=== PATIENT | female | born 1970 | race Caucasian/White ===

== ENCOUNTER 2017-06-17 20:56 | Emergency (ER) | payer OTHER ==
[2017-06-17 21:19] VITALS: PULSE 74; RESP 14; TEMP 98.2
[2017-06-17] MEDS ORDERED: diphenhydrAMINE 25 MG CAP PO ONE ×2 (22:17→22:29)
[2017-06-17] MEDS ORDERED: OXYCODONE/APAP 5/325 TAB PO ONE (22:17)
[2017-06-17] MEDS ORDERED: OXYCODONE/APAP 5/325MG PREPACK#4 BTL TAKEHOME ONE ×2 (22:20→22:23)
--- NOTE | 2017-06-17 22:22 | EDPHY ---
H & P Time Seen by Provider: 06/17/17 22:03 HPI/ROS: This patient complains of left ear pain that feels like inner ear pain to her. She is currently on amoxicillin for otitis media. She was also started on Cortisporin/hydrocortisone drops to the left ear for apparent evidence of otitis externa in addition to head is media by her mid-level this past week. She has taken for 5 days of the Amoxil. She also recently took clindamycin in [employer] for a skin infection that has resolved and she just completed this medication shortly prior to starting the Amoxil. She states the pain is currently moderate but at times is severe and radiates down toward the mandible. She took 800 mg of ibuprofen prior to arrival with mild improvement but seeks more analgesia. If she does not think she can sleep with her current level of pain. ROS: No high fevers or chills. No other constitutional symptoms HEENT: No right ear symptoms. She had nasal congestion prior to the onset of the ear pain. No sore throat. Pulmonary: Mild dry cough past 2 days. No pleuritic pain. No dyspnea. No hemoptysis. Cardiovascular: No complaints GI: No complaints Integumentary: No skin rash Neuro: No confusion. No headache. No numbness. 7 point ROS is otherwise negative. Smoking Status: Never smoked Physical Exam: Physical Exam Vital signs are normal. General: No acute distress HEENT: Nose: Clear discharge bilaterally. No sinus tenderness to percussion. Ears: Left external canal is clear left TM is clear with a serous effusion that is slightly cloudy.. Right ear exam is normal-clear external canal, clear TM. No effusion. Oropharynx: No erythema or exudates. No dysphonia. No drooling or stridor. Eyes: Pupils equal and react to light. Extraocular motions are intact. Neck: Supple with no meningismus. No lymphadenopathy Lungs: Clear to auscultation bilaterally with no rales, rhonchi or wheeze. No respiratory distress. Cardiac: Regular rate and rhythm with no murmur gallop or rub Skin: No rash or pallor. Neuro: Alert with no focal deficits noted. Initial differential diagnosis: Resolving otitis media, serous otitis, URI Constitutional: Initial Vital Signs Temperature (C) 36.8 C 06/17/17 21:12 Heart Rate 74 06/17/17 21:12 Respiratory Rate 14 06/17/17 21:12 O2 Delivery Mode Room Air Allergies/Adverse Reactions: amoxicillin trihydrate [From Augmentin] Allergy (Severe, Verified 05/30/16 14:39 ) hydromorphone HCl [From Dilaudid] Allergy (Intermediate, Verified 05/30/16 14:39 ) morphine [Morphine] Allergy (Intermediate, Verified 05/30/16 14:39) ciprofloxacin [From Cipro] Allergy (Verified 05/30/16 14:39) fentanyl Allergy (Verified 05/30/16 14:39) hydrocodone [Hydrocodone] Allergy (Verified 05/30/16 14:39) oxycodone HCl [From Percocet] Allergy (Verified 05/30/16 14:39) Home Medications: Medication Instructions Recorded Synthroid 07/27/14 Clindamycin 300 mg PO Q8 #60 cap 05/30/16 AMOXICILLIN 06/17/17 Albuterol Hfa Anes Only [Proair 2 puffs IH Q4 PRN #1 mdi 06/17/17 Hfa Icu (*)] Cefuroxime 06/17/17 Fluticasone Nasal [Flonase Nasal 2 sprays NASAL DAILY #1 mdi 06/17/17 [place] (RX)] MDM/Departure - MDM Medications Given: Discontinued Medications Diphenhydramine HCl (Benadryl) 50 mg PO EDNOW ONE Stop: 06/17/17 22:18 Last Admin: 06/17/17 22:24 Dose: 50 mg Oxycodone/Acetaminophen (Percocet 5/325) 1 tab PO EDNOW ONE Stop: 06/17/17 22:18 Last Admin: 06/17/17 22:25 Dose: 1 tab Oxycodone/Acetaminophen (Percocet 5/325mg Prepack#4) 1 btl TAKEHOME EDNOW ONE Stop: 06/17/17 22:24 Last Admin: 06/17/17 22:26 Dose: 1 btl ED Course/Re-evaluation: I counseled patient regarding otitis media which appears to be resolving. I think her pain is due to the pressure from resolving otitis media/serous otitis I counseled regarding this. Will have her continue the Amoxil and add Flonase steroid nasal spray and decongestants. The allergy list includes amoxicillin but she explains this is an air that it is actually a Augmentin notes problem but she tolerates Amoxil. Similarly Percocet as list is now allergy but she tolerates this with Benadryl. She requests Percocet for pain control for sleep tonight. She has no history of abuse and will provide a small number of Percocet for analgesia. - Depart Disposition: Home, Routine, Self-Care Clinical Impression: Cough Otitis media Qualifiers: Otitis media type: other nonsuppurative Chronicity: acute Laterality: left Recurrence: not specified as recurrent Qualified Code(s): H65.192 - Other acute nonsuppurative otitis media, left ear Upper respiratory infection Qualifiers: URI type: unspecified viral URI Qualified Code(s): J06.9 - Acute upper respiratory infection, unspecified; B97.89 - Other viral agents as the cause of diseases classified elsewhere; B97.89 - Other viral agents as the cause of diseases classified elsewhere Condition: Good Instructions: Oxycodone/Acetaminophen (By mouth), Otitis Media (ED) Additional Instructions: Diagnosis: Otitis media 2. Viral URI with cough Plan: Drink plenty fluids Humidifier Continue ibuprofen and Tylenol or Percocet for pain control. Take the Benadryl with Percocet 1-2 tabs per 4 hours if needed. No driving, alcohol or come Percocet Flonase steroid nasal spray Continue your Amoxil. Follow up with ENT physician listed below for any ongoing symptoms despite treatment plan Return emergency department for any significant worsening despite the treatment plan Prescriptions: Albuterol Hfa Anes Only [Proair Hfa Icu (*)] 2 puffs IH Q4 PRN #1 mdi PRN Reason: Wheezing Fluticasone Nasal [Flonase Nasal [place] (RX)] 2 sprays NASAL DAILY #1 mdi Referrals: Sarah Cai PAC [Primary Care Provider] - As per Instructions Artemio Guan MD [Medical Doctor] - As per Instructions
== END 2017-06-17 22:39 | disposition home or self-care (01) ==
LOC: CED 20:56
DX: H65.192 Other acute nonsuppurative otitis media, left ear (principal); J06.9 Acute upper respiratory infection, unspecified

== ENCOUNTER 2018-12-16 20:04 | Emergency (ER) | payer OTHER ==
--- NOTE | 2018-12-16 21:57 | EDPHY ---
H & P Time Seen by Provider: 12/16/18 21:13 HPI/ROS: CHIEF COMPLAINT: Right hand injury HISTORY OF PRESENT ILLNESS: 48-year-old female moving if rather bulky item in the household, her elliptical color strainer machine. One of the leg apparatus is gave way and smacked her hand trapping in between the base post and the elliptical foot hold. She complains of moderate to severe pain in the region of the left hand midportion overlying the 4th and 5th metacarpals as well as considerable pain with movement of the wrist. She notes that this is all the ulnar side of the hand rather than the radial side. There is no actual fall on outstretched hands type injury. This all occurred approximately 2 hr ago. It is not getting worse over time as it was worse from the very beginning. It is not going up the arm. She is not taking anything for the pain as she is not able to take ibuprofen given her recent history of a gastric sleeve operation - this has been successful to the tune of 60 lb. 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 The morphine makes her feel ill, she has been able to tolerate Vicodin just fine. Pt queried and denies: prior hx of substance abuse, family history of substance abuse' or current or prior psychiatric history. Right-handed Work: Are and. REVIEW OF SYSTEMS: Constitutional - no other injury. Musculoskeletal - see above Integument - there is a break to the skin overlying the dorsum of the hand of the 4th and 5th metacarpals. No active bleeding Neurological - no numbness, tingling, or paresthesias. A 10 system review of systems was performed and is negative except for the noted findings in the HPI. Past Medical/Surgical History: Gastric sleeve this past fall with a 60 lb weight loss Smoking Status: Never smoked Physical Exam: General Appearance: Alert, no distress, though looks uncomfortable and she is guarding the hand and holding it up elevated and will not move it. Afebrile. Extremities: There is some mild soft tissue swelling present overlying the 4th and 5th metacarpals. There is an accompanying linear abrasion that is superficial overlying the digits numbers 4th and 5th metacarpal. There is no pain with rotation of the digits some cells. There is no tenderness at the metacarpal phalangeal joint it is mostly mid metacarpal and to some extent at the base on the dorsal aspect of the left wrist it involving the carpal row. No radial tenderness. Neurological: NV intact. Skin: Skin is intact. Warm and dry, no rashes. no lymphangitis. . Constitutional: Initial Vital Signs Temperature (C) 36.9 C 12/16/18 22:17 Heart Rate 72 12/16/18 22:17 Respiratory Rate 14 12/16/18 22:17 Blood Pressure 124/84 H 12/16/18 22:17 O2 Sat (%) 96 12/16/18 22:17 O2 Delivery Mode Room Air Allergies/Adverse Reactions: amoxicillin trihydrate [From Augmentin] Allergy (Severe, Verified 12/16/18 22:00 ) hydromorphone HCl [From Dilaudid] Allergy (Intermediate, Verified 12/16/18 22:00 ) morphine [Morphine] Allergy (Intermediate, Verified 12/16/18 22:00) ciprofloxacin [From Cipro] Allergy (Verified 12/16/18 22:00) fentanyl Allergy (Verified 12/16/18 22:00) hydrocodone [Hydrocodone] Allergy (Verified 12/16/18 22:00) oxycodone HCl [From Percocet] Allergy (Verified 12/16/18 22:00) Home Medications: Medication Instructions Recorded Synthroid 07/27/14 Medical Decision Making - Diagnostics Imaging: Discussed imaging studies w/ call manager Radiologist ED Course/Re-evaluation: My Plain Film Review: Plain film of left wrist, 3 view series. Interpreted by radiologist. Films reviewed me. There is a likelihood of a avulsion fracture of the hamate on the lateral aspect of the wrist. Is only seen on one view however. She is tender there and allowed allowing me move it. I discussed this findings with the radiologist and they also are equivocal about this site given the fact that it is only on one view [place] Prescription Drug Monitoring Program checked: She had 2 moderate courses of a morphine this past fall this time of her gastric sleeve. No other injuries. Differential Diagnosis: The differential diagnosis includes but is not limited to: Fracture, Sprain, Strain, Dislocation, Nerve injury, Contusion - Data Points Medications Given: Discontinued Medications Hydrocodone Bitart/Acetaminophen ([place] 5/325mg Prepack#6) 1 btl TAKEHOME EDNOW ONE Stop: 12/16/18 22:05 Last Admin: 12/16/18 22:14 Dose: 1 btl Departure - Departure Disposition: Home, Routine, Self-Care Clinical Impression: Hand contusion Qualifiers: Encounter type: initial encounter Laterality: left Qualified Code(s): S60.222A - Contusion of left hand, initial encounter Abrasion hand Qualifiers: Encounter type: initial encounter Laterality: left Qualified Code(s): S60.512A - Abrasion of left hand, initial encounter Carpal bone fracture Qualifiers: Encounter type: initial encounter Carpal bone: hamate Hamate bone location: unspecified portion of hamate Fracture type: closed Fracture alignment: nondisplaced Laterality: left Qualified Code(s): S62.145A - Nondisplaced fracture of body of hamate [unciform] bone, left wrist, initial encounter for closed fracture Condition: Good Instructions: Contusion in Adults (ED), Abrasion (ED) Referrals: KALI PAYNE [Primary Care Provider] - As per Instructions Stand Alone Forms: Work Excuse
[2018-12-16] MEDS ORDERED: HYDROCOD/APAP 5/325 PREPACK#6 BTL TAKEHOME ONE (22:04)
[2018-12-17 01:17] VITALS: BP 132/86
== END 2018-12-16 22:52 | disposition home or self-care (01) ==
LOC: CED 20:04
PROC: 2W3FX1Z Immobilization of Left Hand using Splint (ICD-10-PCS; principal; 2018-12-16)
DX: S62.145A Nondisplaced fracture of body of hamate [unciform] bone, left wrist, initial encounter for closed fracture (principal); S60.222A Contusion of left hand, initial encounter; S60.512A Abrasion of left hand, initial encounter; W22.09XA Striking against other stationary object, initial encounter; Y93.E6 Activity, residential relocation; Z98.84 Bariatric surgery status
CPT/HCPCS: 73130-PO; 99283-ER

== ENCOUNTER 2019-03-09 06:48 | Day surgery (SDC) | payer OTHER | END 2019-03-09 12:24 | disposition home or self-care (01) | LOC: FSGY 06:48 ==

== ENCOUNTER 2019-03-09 20:59 | Emergency (ER) | payer OTHER | END 2019-03-10 00:30 | disposition home or self-care (01) ==